=== PATIENT | male | born 2000 | race Caucasian/White ===

== ENCOUNTER 2024-04-17 23:37 | Emergency (ER) | payer SELFPAY ==
[~2024-04-17] VITALS: Ht 177.8 cm; Wt 84.0 kg
[2024-04-17 23:41] VITALS: TEMP 98.2; O2SAT 99
[2024-04-18] MEDS: HYDROXYZINE 25MG TABLET PO ONE (00:15)
[2024-04-18] MEDS ORDERED: HYDROXYZINE 25MG TABLET PO NR (01:00)
[2024-04-18] MEDS ORDERED: NAPR275T96 MT (01:22)
[2024-04-18] MEDS: KETOROLAC 30MG/ML VIAL IM NR (01:41)
[2024-04-18 02:37] VITALS: BP 116/72; PULSE 88; RESP 14
== END 2024-04-18 02:40 | disposition home or self-care (01) ==
LOC: ER 23:47
DX: R07.89 Other chest pain (principal); F41.9 Anxiety disorder, unspecified
CPT/HCPCS: 99283; 71045; 93005; 96372; J1885

== ENCOUNTER 2024-09-15 20:37 | Emergency (ER) | payer SELFPAY ==
[~2024-09-15] VITALS: Ht 172.7 cm; Wt 90.0 kg
[~2024-09-15 20:37] MED LIST: NAPR275T96 MT
[2024-09-15 20:43] VITALS: O2SAT 100
[2024-09-15 21:51] LABS: BASOPHILS % 0.5 % (0.0-2.0); HEMATOCRIT. 45.2 % (42.0-52.0); HEMOGLOBIN. 15.1 g/dL (14.0-18.0); LYMPHOCYTES % 20.3 % (20.0-50.0); MEAN CORPUSCULAR HEMOGLOBIN 30.3 pg (28.0-32.0); MEAN CORPUSCULAR HGB CONC 33.4 g/dL (31.0-37.0); MEAN CORPUSCULAR VOLUME 90.8 fL (80.0-94.0); MEAN PLATELET VOLUME 9.4 fl (7.4-10.4); MONOCYTES % 5.4 % (2.0-8.0); NEUTROPHILS % 72.8 % (40.0-76.0); PLATELET 270 x1000/uL (130-400); RED BLOOD CELL COUNT 4.97 mill/uL (4.7-6.1); RED CELL DISTRIBUTION WIDTH 13.4 % (11.6-14.6); WHITE BLOOD COUNT 9.9 x1000/uL (4.5-11.0)
[2024-09-15 21:58] LABS: CHLORIDE 107 mEq/L (98-107); POTASSIUM 4.1 mEq/L (3.5-5.1); SODIUM 141 mEq/L (136-145)
[2024-09-15 21:59] LABS: CALCIUM 10.2 mg/dL (8.7-10.4); CARBON DIOXIDE 27 mEq/L (21-32)
[2024-09-15 22:04] LABS: GLUCOSE 79 mg/dL (70-105); UREA NITROGEN BLOOD 10 mg/dL (9-23)
[2024-09-15 22:06] LABS: ALANINE AMINOTRANSFERASE 25 IU/L (10-49); ALBUMIN 4.8 g/dL (3.2-4.8); ASPARTATE AMINOTRANSFERASE 25 IU/L (<34); BILIRUBIN TOTAL 0.4 mg/dL (0.1-1.0); PROTEIN TOTAL 8.2 g/dL (6.0-8.3)
[2024-09-15 22:10] VITALS: BP 142/83; PULSE 84; RESP 19
[2024-09-15] MEDS: ONDANSETRON HCL 4MG TABLET PO ONE (22:10)
[2024-09-15] MEDS: KETOROLAC 15MG/ML VIAL IM ONE (22:10)
[2024-09-15 22:14] LABS: BILIRUBIN DIRECT < 0.1 mg/dL (<=3.0)
[2024-09-15 22:48] LABS: CLARITY URINE CLEAR (CLEAR); COLOR URINE YELLOW (YELLOW); GLUCOSE URINE NEGATIVE (NEGATIVE); KETONES URINE NEGATIVE (NEGATIVE); LEUKOCYTE ESTERASE URINE NEGATIVE (NEGATIVE); NITRITE URINE NEGATIVE (NEGATIVE); OCCULT BLOOD URINE NEGATIVE (NEGATIVE); PH URINE 5.5 (4.5-8.0); PROTEIN URINE NEGATIVE (NEGATIVE); SPECIFIC GRAVITY URINE 1.025 (1.005-1.030)
== END 2024-09-16 01:07 | disposition home or self-care (01) ==
LOC: ER 20:37
DX: R10.11 Right upper quadrant pain (principal); R11.2 Nausea with vomiting, unspecified
CPT/HCPCS: 99285; 74176; 80076; 80048; 80307; 83690; 85025; 36415; 93005; 81003; Q0162; J1885

== ENCOUNTER 2025-01-29 12:38 | Emergency (ER) | payer SELFPAY ==
[~2025-01-29] VITALS: Ht 177.8 cm; Wt 92.0 kg
[2025-01-29 12:39] VITALS: O2SAT 97
[2025-01-29 14:00] LABS: CHLORIDE 107 mEq/L (98-107); POTASSIUM 3.8 mEq/L (3.5-5.1); SODIUM 140 mEq/L (136-145)
[2025-01-29 14:01] LABS: CALCIUM 8.9 mg/dL (8.7-10.4); CARBON DIOXIDE 24 mEq/L (21-32)
[2025-01-29 14:06] LABS: CREATININE 0.8 mg/dL (0.6-1.3); GLUCOSE 96 mg/dL (70-105); UREA NITROGEN BLOOD 9 mg/dL (9-23)
[2025-01-29 14:07] LABS: ETHANOL BLOOD 47 mg/dL (<10); TROPONIN I HIGH SENSITIVITY 19 ng/L (3.0-53)
[2025-01-29 14:08] LABS: ACETAMINOPHEN < 2 ug/mL (10-30)
[2025-01-29 14:26] LABS: BASOPHILS % 0.3 % (0.0-2.0); EOSINOPHILS % 0.6 % (0.0-5.0); HEMATOCRIT. 41.5 % (42.0-52.0); HEMOGLOBIN. 14.1 g/dL (14.0-18.0); LYMPHOCYTES % 27.2 % (20.0-50.0); MEAN CORPUSCULAR HEMOGLOBIN 29.7 pg (28.0-32.0); MEAN CORPUSCULAR VOLUME 87.4 fL (80.0-94.0); MEAN PLATELET VOLUME 9.6 fl (7.4-10.4); MONOCYTES % 6.8 % (2.0-8.0); NEUTROPHILS % 65.1 % (40.0-76.0); PLATELET 263 x1000/uL (130-400); RED BLOOD CELL COUNT 4.75 mill/uL (4.7-6.1); RED CELL DISTRIBUTION WIDTH 13.6 % (11.6-14.6); WHITE BLOOD COUNT 7.5 x1000/uL (4.5-11.0)
[2025-01-29 15:00] VITALS: BP 116/74; PULSE 72; RESP 16; TEMP 36.7; O2SAT 98
== END 2025-01-29 15:58 | disposition home or self-care (01) ==
LOC: ER 12:38
DX: R45.851 Suicidal ideations (principal); Z79.899 Other long term (current) drug therapy
CPT/HCPCS: 36415; 80048; 80307; 80320; 80329; 84484; 85025; 93005; 99284; G0480

== ENCOUNTER 2025-02-14 14:16 | Emergency (ER) | payer SELFPAY ==
[~2025-02-14] VITALS: Ht 177.8 cm; Wt 100.0 kg
[2025-02-14 14:18] VITALS: O2SAT 99
[2025-02-14 15:11] LABS: BASOPHILS % 0.4 % (0.0-2.0); EOSINOPHILS % 0.4 % (0.0-5.0); HEMATOCRIT. 43.4 % (42.0-52.0); HEMOGLOBIN. 14.2 g/dL (14.0-18.0); LYMPHOCYTES % 14.7 % (20.0-50.0); MEAN CORPUSCULAR HEMOGLOBIN 29.4 pg (28.0-32.0); MEAN CORPUSCULAR HGB CONC 32.7 g/dL (31.0-37.0); MEAN CORPUSCULAR VOLUME 89.7 fL (80.0-94.0); MEAN PLATELET VOLUME 9.7 fl (7.4-10.4); MONOCYTES % 6.2 % (2.0-8.0); NEUTROPHILS % 78.3 % (40.0-76.0); PLATELET 250 x1000/uL (130-400); RED BLOOD CELL COUNT 4.84 mill/uL (4.7-6.1); RED CELL DISTRIBUTION WIDTH 13.6 % (11.6-14.6); WHITE BLOOD COUNT 9.8 x1000/uL (4.5-11.0)
[2025-02-14 15:14] LABS: CHLORIDE 105 mEq/L (98-107); POTASSIUM 3.5 mEq/L (3.5-5.1); SODIUM 140 mEq/L (136-145)
[2025-02-14 15:15] LABS: CARBON DIOXIDE 22 mEq/L (21-32)
[2025-02-14 15:16] LABS: CALCIUM 9.5 mg/dL (8.7-10.4)
[2025-02-14 15:20] LABS: CREATININE 0.8 mg/dL (0.6-1.3); GLUCOSE 115 mg/dL (70-105); UREA NITROGEN BLOOD 12 mg/dL (9-23)
[2025-02-14 15:21] LABS: ETHANOL BLOOD < 10 mg/dL (<10)
[2025-02-14 15:22] LABS: ACETAMINOPHEN < 2 ug/mL (10-30); ALANINE AMINOTRANSFERASE 26 IU/L (10-49); ALBUMIN 4.3 g/dL (3.2-4.8); ASPARTATE AMINOTRANSFERASE 26 IU/L (<34); BILIRUBIN DIRECT 0.3 mg/dL (<=3.0)
[2025-02-14 15:23] LABS: BILIRUBIN TOTAL 0.8 mg/dL (0.1-1.0); PROTEIN TOTAL 7.6 g/dL (6.0-8.3)
[2025-02-14] MEDS: FAMOTIDINE 20MG TABLET PO ONE (15:52)
[2025-02-14] MEDS: MAGNESIUM/ALUMINUM HYDROXIDE/SIMETHICONE 30ML UDC PO STA (15:52)
[2025-02-14] MEDS: SODIUM CHLORIDE 0.9% 1,000 ML IV ONE (15:52)
[2025-02-14] MEDS: ONDANSETRON 4MG ODT PO STA (15:53)
[2025-02-14 16:34] LABS: BG BASE EXCESS -2.2 mmol/L (-2.0-3.0); BG CARBOXYHEMOGLOBIN 1.1 % (0.5-1.5); BG DEOXYHEMOGLOBIN 1.9 % (0.0-5.0); BG FRACTION INSPIRED OXYGEN 21; BG METHEMOGLOBIN 0.3 % (0.5-1.5); BG OXYGEN SATURATION 98.1 % (94.0-98.0); BG OXYHEMOGLOBIN 96.7 % (94.0-98.0); BG PCO2 36.4 mmHg (35.0-48.0); BG PH 7.399 (7.350-7.450); BG PO2 101.6 mmHg (83.0-108.0); BG SAMPLE SITE RIGHT BRACHIAL; BG TOTAL HEMOGLOBIN 15.8 g/dL (13.5-17.5); BG VENT MODE ROOM AIR
[2025-02-15 05:17] LABS: CLARITY URINE CLEAR (CLEAR); COLOR URINE YELLOW (YELLOW); GLUCOSE URINE NEGATIVE (NEGATIVE); KETONES URINE NEGATIVE (NEGATIVE); LEUKOCYTE ESTERASE URINE NEGATIVE (NEGATIVE); NITRITE URINE NEGATIVE (NEGATIVE); OCCULT BLOOD URINE NEGATIVE (NEGATIVE); PH URINE 5.5 (4.5-8.0); PROTEIN URINE NEGATIVE (NEGATIVE); SPECIFIC GRAVITY URINE 1.022 (1.005-1.030)
[2025-02-15 05:25] LABS: *AMPHETAMINES SCREEN URINE NEGATIVE (NEGATIVE); *BARBITURATES SCREEN URINE NEGATIVE (NEGATIVE); *BENZODIAZEPINES SCREEN URINE NEGATIVE (NEGATIVE); *COCAINE SCREEN URINE NEGATIVE (NEGATIVE); CANNABINOID URINE SCREEN NEGATIVE (NEGATIVE); ECSTASY MDMA SCREEN URINE NEGATIVE (NEGATIVE); METHADONE URINE SCREEN NEGATIVE (NEGATIVE); OPIATES URINE SCREEN NEGATIVE (NEGATIVE); PHENCYCLIDINE URINE SCREEN NEGATIVE (NEGATIVE)
[2025-02-15 06:09] LABS: CHLORIDE 106 mEq/L (98-107); POTASSIUM 4.6 mEq/L (3.5-5.1); SODIUM 141 mEq/L (136-145)
[2025-02-15 06:10] LABS: CARBON DIOXIDE 28 mEq/L (21-32)
[2025-02-15 06:11] LABS: CALCIUM 9.7 mg/dL (8.7-10.4)
[2025-02-15 06:15] LABS: CREATININE 0.9 mg/dL (0.6-1.3); GLUCOSE 96 mg/dL (70-105); UREA NITROGEN BLOOD 8 mg/dL (9-23)
[2025-02-15 06:17] LABS: ALANINE AMINOTRANSFERASE 22 IU/L (10-49); ALBUMIN 4.1 g/dL (3.2-4.8); ASPARTATE AMINOTRANSFERASE 22 IU/L (<34)
[2025-02-15 06:18] LABS: BILIRUBIN TOTAL 1.2 mg/dL (0.1-1.0); PROTEIN TOTAL 7.1 g/dL (6.0-8.3)
[2025-02-15 16:10] VITALS: BP 136/72; PULSE 70; RESP 18; TEMP 36.9; O2SAT 99
[2025-02-16] MEDS ORDERED: SERTRALINE HCL 25MG TABLET PO SCH (09:00)
== END 2025-02-15 16:40 | disposition short-term general hospital (02) ==
LOC: ER 14:16
DX: T50.902A Poisoning by unspecified drugs, medicaments and biological substances, intentional self-harm, initial encounter (principal); R45.851 Suicidal ideations; F32.9 Major depressive disorder, single episode, unspecified; F41.9 Anxiety disorder, unspecified; Z20.822 Contact with and (suspected) exposure to COVID-19; Y92.89 Other specified places as the place of occurrence of the external cause
CPT/HCPCS: 80076; 80048; 80307; 80329; 80320; 83690; 83930 ×2; 85025; 36415 ×2; 82805; 82375; 93005; 96360; 96361; 99285; 36600; 80053; 80305; 81003; 87426; Q0162; J7030; G0480